=== PATIENT | male | born 1970 | race Caucasian/White ===

== ENCOUNTER 2022-03-29 15:09 | Emergency (ER) | payer OTHER ==
[~2022-03-29] VITALS: Ht 170.2 cm; Wt 55.0 kg
[~2022-03-29 15:09] MED LIST: METFORMIN
[2022-03-29] MEDS ORDERED: MAGNESIUM/ALUMINUM HYDROXIDE/SIMETHICONE 30ML UDC PO NR (15:20)
[2022-03-29] MEDS ORDERED: MAGNESIUM/ALUMINUM HYDROXIDE/SIMETHICONE 30ML UDC PO STA (15:20)
[2022-03-29] MEDS ORDERED: VISCOUS LIDOCAINE 2% 15 ML UDC PO STA (15:20)
[2022-03-29] MEDS: VISCOUS LIDOCAINE 2% 15 ML UDC PO NR ×3 (15:20→17:06)
[2022-03-29] MEDS ORDERED: FAMOTIDINE 20MG TABLET PO ONE (15:30)
[2022-03-29] MEDS ORDERED: FAMOTIDINE 20MG TABLET PO NR (15:30)
[2022-03-29 16:16] LABS: BASOPHILS % 0.6 % (0.0-2.0); EOSINOPHILS % 1.9 % (0.0-5.0); HEMATOCRIT. 41.5 % (42.0-52.0); HEMOGLOBIN. 13.7 g/dL (14.0-18.0); LYMPHOCYTES % 34.7 % (20.0-50.0); MEAN CORPUSCULAR HEMOGLOBIN 27.9 pg (28.0-32.0); MEAN CORPUSCULAR VOLUME 84.2 fL (80.0-94.0); MEAN PLATELET VOLUME 8.7 fl (7.4-10.4); MONOCYTES % 5.9 % (2.0-8.0); NEUTROPHILS % 56.9 % (40.0-76.0); PLATELET 266 x1000/uL (130-400); RED BLOOD CELL COUNT 4.93 mill/uL (4.7-6.1); RED CELL DISTRIBUTION WIDTH 13.7 % (11.6-14.6)
[2022-03-29 16:25] LABS: CHLORIDE 103 mEq/L (98-107)
[2022-03-29] MEDS ORDERED: FAMO40TA70 MT (17:42)
[2022-03-29] MEDS ORDERED: MAG-55 MT (17:42)
[2022-03-29] MEDS ORDERED: METF-414 MT (17:42)
[2022-03-29 17:58] VITALS: BP 131/91
== END 2022-03-29 17:58 | disposition home or self-care (01) ==
LOC: ER 15:09
DX: K29.00 Acute gastritis without bleeding (principal); E11.65 Type 2 diabetes mellitus with hyperglycemia; Z79.84 Long term (current) use of oral hypoglycemic drugs
CPT/HCPCS: 36415; 80053; 82962; 85025; 93005; 99284